=== PATIENT | female | born 1965 | race Caucasian/White ===

== ENCOUNTER → 2020-08-18 11:15 | Outpatient (CLI) | payer SELFPAY ==
[2020-08-18 14:20] LABS: Chloride 103 mmol/L (98-107); Sodium 139 mmol/L (136-145)
[2020-08-18 14:21] LABS: Potassium 4.2 mmoL/L (3.5-5.1)
[2020-08-18 14:23] LABS: Alanine Aminotransferase 10 U/L (12-78); Albumin Level 3.7 g/dl (3.5-5.0); Albumin/Globulin Ratio 1.1 (1.1-1.8); Alkaline Phosphatase 140 U/L (38-126); Anion Gap 9.2 mEq/L (5-15); Aspartate Amino Transferase 22 U/L (14-36); Bilirubin,Total 0.4 mg/dl (0.2-1.3); Carbon Dioxide 31 mmol/L (22.0-30.0); Estimated Glomerular Filt Rate 103 ml/min (>60); GFR (African American) 125 ML/MIN (>60); Globulin 3.3 g/dL (1.3-3.2)
[2020-08-18 14:24] LABS: Calcium 9.4 mg/dl (8.4-10.2); Glucose 99 mg/dl (74-100)
[2020-08-18 14:44] LABS: Blood Urea Nitrogen < 2 mg/dl (7-17)
== END ==
PROVIDERS: Visit Provider Nurse Practitioner Family
DX: M05.79 Rheumatoid arthritis with rheumatoid factor of multiple sites without organ or systems involvement (principal)
CPT/HCPCS: 36415; 80053

== ENCOUNTER 2021-06-21 14:53 | Emergency (ER) | payer MEDICARE, SELFPAY ==
[2021-06-21] VITALS (8 sets, daily range): BP systolic 162–190; BP diastolic 79–98; PULSE 88–118; RESP 14–21; TEMP 36.6–36.7; O2SAT 97–99; BMI 21.2
--- NOTE | 2021-06-21 14:54 | CT_ITS ---
PROCEDURE: CT HEAD/BRAIN WO CON CLINICAL INDICATION: Left side weakness COMPARISON: No exams were available for comparison TECHNIQUE: Axial images obtained. All CT scans at the facility use one or more dose reduction, viz: automated exposure control, ma/kV adjustment per patient size (including targeted exams where dose is matched to indication, i.e. head), or iterative reconstruction technique. FINDINGS: No midline shift, mass effect, intracranial hemorrhage, hydrocephalus, or extra-axial fluid collection is evident. A 6 mm hypodensity is present within the right thalamus consistent with a lacunar infarction age indeterminate. Low-density changes are present within the body of the corpus callosum on the right at 8 mm also consistent with a lacunar infarction age indeterminate. Hypodense changes are present in the left centrum semiovale anteriorly consistent with an old lacunar infarction small area of decreased attenuation is also present in the anterior limb of the right internal capsule and could be due to a small lacunar infarction age indeterminate the calvarium has an unremarkable appearance. No mastoid effusion. No sinus air-fluid level. IMPRESSION: Age indeterminate lacunar infarctions of the right body of the corpus callosum, right internal capsule anterior limb and the right thalamus with old lacunar infarction of the left centrum semiovale. No acute intracranial hemorrhage Dictated by: Cliff Goetz MD 06/21/2021 15:18 Cliff Goetz MD in [facility] 06/21/2021 15:18
--- NOTE | 2021-06-21 15:00 | PC.NURSE ---
PT to CT
[2021-06-21 15:03] LABS: Basophils # 0.1 K/mm3 (0-0.2); Basophils % 0.7 % (0.1-2.0); Eosinophils # 0.2 K/mm3 (0.0-0.4); Eosinophils % 2.2 % (0.1-12.0); Hematocrit 41.9 % (37.0-47.0); Hemoglobin 14.3 g/dL (12.2-16.2); Lymphocytes # 2.6 K/mm3 (0.7-4.5); Lymphocytes % 37.1 % (10-50); Mean Corpuscular HGB Conc 34.2 g/dL (31.8-35.4); Mean Corpuscular Hemoglobin 31.6 pg (27.0-31.2); Mean Corpuscular Volume 92.4 fl (81-99); Mean Platelet Volume 8.3 fl (7.4-10.4); Monocytes # 0.3 K/mm3 (0.1-1.0); Monocytes % 4.9 % (1.7-9.3); Neutrophils # 3.8 K/mm3 (1.8-7.8); Platelet Count 245 K/mm3 (142-424); Red Blood Count 4.53 M/mm3 (4.20-5.40); Red Cell Distribution Width 14.2 % (11.5-17.5); White Blood Count 6.9 K/mm3 (4.8-10.8)
--- NOTE | 2021-06-21 15:05 | PC.NURSE ---
NIH Stroke Scale Score of 2
[2021-06-21 15:09] LABS: Chloride 102 mmol/L (98-107); Sodium 139 mmol/L (136-145)
--- NOTE | 2021-06-21 15:10 | PC.NURSE ---
BACK FROM CT
[2021-06-21 15:11] LABS: Alanine Aminotransferase 14 U/L (12-78); Alkaline Phosphatase 103 U/L (38-126); Aspartate Amino Transferase 21 U/L (14-36); Bilirubin,Total 0.4 mg/dl (0.2-1.3); Blood Urea Nitrogen 3 mg/dl (7-17); Carbon Dioxide 27 mmol/L (22.0-30.0); Creatinine Clearance Estimated 97 mL/min (50-200); Estimated Glomerular Filt Rate 127 ml/min (>60); GFR (African American) 154 ML/MIN (>60)
[2021-06-21 15:12] LABS: Albumin Level 4.1 g/dl (3.5-5.0); Albumin/Globulin Ratio 1.2 (1.1-1.8); Globulin 3.3 g/dL (1.3-3.2); Glucose 119 mg/dl (74-100); Total Protein,Serum 7.4 g/dl (6.3-8.2)
--- NOTE | 2021-06-21 15:21 | HMH.EDGENADL ---
ED Disposition Clinical Impression: Cerebrovascular accident Qualifiers: CVA mechanism: unspecified Qualified Code(s): I63.9 - Cerebral infarction, unspecified Disposition: Xfer Critical Access Hosp Condition on Discharge: Good Referrals: Provider,Referral, [Referring] - Forms: Transfer Record - ED - Critical Care Critical Care Time: No Attestation: On 06/21/21, the high probability of a clinically significant, sudden or life threatening deterioration of the following system(s) required my full and direct attention, intervention and personal management. The time I documented below is in addition to time spent performing reported procedures but includes the following listed in this critical care notation. Medical Decision Making - Mandeep Inquiry Pt receiving controlled substance: No Mandeep was queried for this patient: No Vital Signs: 06/21/21 14:53 06/21/21 15:11 06/21/21 15:30 Temperature 98.0 F Temperature Source Oral Pulse Rate 102 H 98 H Pulse Rate [Right Radial] 118 H Respiratory Rate 15 21 Blood Pressure 186/86 H 177/97 H Blood Pressure [Right Arm] 190/98 H Blood Pressure Mean [Right Arm] 128 Blood Pressure Source [Right Arm] Automatic Cuff Blood Pressure Position [Right Arm] Sitting 02 Sat by Pulse Oximetry 98 98 Oxygen Delivery Method Room Air 06/21/21 15:45 06/21/21 16:00 06/21/21 16:15 Temperature Temperature Source Pulse Rate 88 91 H Pulse Rate [Right Radial] Respiratory Rate 16 14 17 Blood Pressure 164/83 H 163/82 H 162/79 H Blood Pressure [Right Arm] Blood Pressure Mean [Right Arm] Blood Pressure Source [Right Arm] Blood Pressure Position [Right Arm] 02 Sat by Pulse Oximetry 97 97 Oxygen Delivery Method - Lab Data Lab Results 06/21/21 14:50: WBC 6.9, RBC 4.53, Hgb 14.3, Hct 41.9, MCV 92.4, MCH 31.6 H, MCHC 34.2, RDW 14.2, Plt Count 245, MPV 8.3, Neut % (Auto) 55.0, Lymph % (Auto) 37.1, [place] % (Auto) 4.9, Eos % (Auto) 2.2, Baso % (Auto) 0.7, Neut # (Auto) 3.8, Lymph # (Auto) 2.6, [place] # (Auto) 0.3, Eos # (Auto) 0.2, Baso # (Auto) 0.1 06/21/21 14:50: Sodium 139, Potassium 4.0, Chloride 102, Carbon Dioxide 27, Anion Gap 14.0, BUN 3 L, Creatinine 0.50 L, Estimated Creat Clear 97, Estimated GFR 127, Est GFR ( Amer) 154, Glucose 119 H, Calcium 9.0, Total Bilirubin 0.4, AST 21, ALT 14, Alkaline Phosphatase 103, Total Protein 7.4, Albumin 4.1, Globulin 3.3 H, Albumin/Globulin Ratio 1.2 Result diagrams: 06/21/21 14:50 06/21/21 14:50 Orders (Tests/Meds): ORDERS Category Date Time Status Rapid PCR Covid and Flu A/B Stat Lab 06/21/21 16:27 Ordered UA [Urinalysis and Microscopic] Stat Lab 06/21/21 14:54 Ordered General Adult HPI - General Chief complaint: Neuro Symptoms/Deficit Stated complaint: Possible CVA Time Seen by Provider: 06/21/21 14:55 Mode of Arrival: Wheelchair Limitations: No Limitations Description of Symptoms (Recalled from ER Triage Doc. by RN): C/O left side weakness since waking up morning. Drift present in left upper and lower extremity. - History of Present Illness HPI narrative: Patient is a 55-year-old female presenting to the emergency department chief complaint of left-sided weakness. She states that she first noticed it on morning when she woke up. She noticed some mild weakness, denies any dysarthria, has not noticed any facial droop, denies headache, changes in vision states that she had no pain or no additional problems. Emergency department today because her family was concerned about her and about her left-sided weakness she attempted to call her physician, discussed the problems and they told her to come to the emergency department immediately. Denies any past medical history of stroke, but does state that this past week or 2 her blood pressure has been elevated, and when she went to her doctor's office at 1 point it was 190 something over 100 something. After that she
--- NOTE | 2021-06-21 16:15 | PC.NURSE ---
calling [facility] at this time.
--- NOTE | 2021-06-21 16:50 | PC.NURSE ---
Attempted to call report to [facility] and they stated that they were trying to decide where pt will go and that they will call me back.
[2021-06-21 17:45] LABS: Coronavirus 19, PCR Not Detected (NotDetected); Influenza A, PCR Not Detected (NotDetected); Influenza B, PCR Not Detected (NotDetected)
--- NOTE | 2021-06-21 18:00 | PC.NURSE ---
returned call and gave a bed assignment rather than pt going to ED. Bed assignment of Jonathon Bennett, 6th floor, Rm 217 given with phone number of [phone] to call report. Attempted to call report and was told that the nurse taking the pt was busy and would return my call.
== END 2021-06-21 20:42 | disposition short-term general hospital (02) ==
PROVIDERS: Emergency Provider Emergency Medicine; PCP Emergency Medicine
DX: I63.89 Other cerebral infarction (principal); G81.94 Hemiplegia, unspecified affecting left nondominant side; M79.7 Fibromyalgia; F17.210 Nicotine dependence, cigarettes, uncomplicated; Z20.822 Contact with and (suspected) exposure to COVID-19; R29.702 NIHSS score 2
CPT/HCPCS: 70450; 80053; 85025; 99284; C9803; U0003; U0005

== ENCOUNTER → 2021-08-03 07:44 | Outpatient (CLI) | payer MEDICARE, SELFPAY ==
--- NOTE | 2021-08-03 07:47 | US_ITS ---
PROCEDURE: US ABDOMEN COMPLETE CLINICAL INDICATION: ABN RESULTS OF LIVER FUNCTION STUDIES COMPARISON: US RUQ US RUQ-(ABD LTD)1ORGAN/QUAD/FU from 11/07/2016 FINDINGS: PANCREAS: Unremarkable. No obvious mass or abnormal fluid collection. No ductal dilatation LIVER: No focal liver lesions demonstrated. Homogeneous echogenicity. No intrahepatic biliary ductal dilatation evident. There is appropriate direction of blood flow within a non dilated portal vein RIGHT KIDNEY: Unremarkable. Normal size and echogenicity. No hydronephrosis LEFT KIDNEY: Unremarkable. Normal size and echogenicity. No hydronephrosis GALLBLADDER: 2 cm gallstone noted. No gallbladder wall thickening, pericholecystic fluid, or biliary dilatation. Common bile duct is normal at 3 mm. AORTA: Atheromatous changes of the aorta without aneurysm. SPLEEN: Spleen is poorly demonstrated. No obvious splenomegaly. ASCITES: None demonstrated. IMPRESSION: Cholelithiasis otherwise negative. Dictated by: Cliff Goetz MD 08/03/2021 11:25 Cliff Goetz MD in [facility] 08/03/2021 11:25
== END ==
PROVIDERS: PCP Emergency Medicine; Visit Provider Nurse Practitioner Family
DX: R94.5 Abnormal results of liver function studies (principal)
CPT/HCPCS: 76700

== ENCOUNTER 2022-12-12 11:17 | Emergency (ER) | payer MEDICARE, SELFPAY ==
[2022-12-12 11:23] VITALS: PULSE 93; RESP 18; O2SAT 99; BMI 19.7
--- NOTE | 2022-12-12 11:27 | XR_ITS ---
FINAL REPORT CLINICAL HISTORY: INJURY TO THUMB FINDINGS: 3 views of the right hand were obtained. There is a nondisplaced fracture of the proximal aspect of the 1st distal phalanx. There are mild degenerative changes. There is no soft tissue abnormality. IMPRESSION: Nondisplaced fracture of the 1st distal phalanx. Reviewed, Interpreted and Dictated by David Delgado III, MD Transcribed by Nguyễn Resendez Authenticated and [facility]
[2022-12-12 12:20] VITALS: PULSE 86; RESP 19; TEMP 36.6; O2SAT 98; BMI 19.7
--- NOTE | 2022-12-12 12:42 | EXP.UTC ---
Discharge Plan Disposition Patient Disposition: Home, Self-Care Condition: Good Prescriptions Prescriptions: No Action sucralfate 1 gram tablet 1 g PO DAILY prednisone 20 mg tablet 20 mg PO BID 5 Days Qty: 10 0RF naproxen 500 mg tablet 500 mg PO BID 14 Days Qty: 28 0RF methotrexate sodium 2.5 mg tablet 20 mg PO QWEEK folic acid 1 mg tablet 1 mg PO QDAY gabapentin 800 mg tablet 800 mg PO QID hydroxychloroquine 200 mg tablet 200 mg PO BID duloxetine 60 mg capsule,delayed release(DR/EC) 60 mg PO QDAY diclofenac sodium 1 % gel 2 g TOPICAL .PRN adalimumab [Humira Pen] 40 mg/0.8 mL pen injector kit 40 mg SUB-Q Q14D celecoxib 200 mg capsule See Rx Instructions .ROUTE .COMPLEX Qty: 90 0RF Dose Instruction: TAKE ONE CAPSULE BY MOUTH ONCE A DAY Rx Instructions: TAKE ONE CAPSULE BY MOUTH ONCE A DAY Referrals Follow up/Referrals: Harpreet Santacruz DO [Staff Physician] - See instructions (call office for appointment) Em Renteria [Primary Care Provider] - See instructions Activity Restrictions/Add. Instructions Additional Instructions/Restrictions: *finger splint is for support and help control swelling, use it except in the shower. Be sure that is not to tight but not to loose either *Elevate when resting? *Ibuprofen 600-800mg every 6-8 hours as needed for pain an inflammation. If need something more can take Tylenol in between doses of Ibuprofen to help Follow up with your Family Doctor and Orthopedics Immediately follow up with your family doctor for new or worsening of symptoms, or no noticeable improvement over the next 3-5 days Clinical Impressions Clinical Impression: Finger fracture Qualifiers: Encounter type: initial encounter Finger: thumb Fracture type: closed Phalanx: distal Fracture alignment: nondisplaced Laterality: right Qualified Code(s): S62.524A - Nondisplaced fracture of distal phalanx of right thumb, initial encounter for closed fracture Instructions Patient Instructions: Finger Fracture, DI for Finger Fracture, How To Perform RICE (Rest, Ice, Compress, Elevate) Discharge ED Provider: [facility] HPI General Stated complaint: Fall@home 12/11 RT thumb pain Mode of Arrival: Ambulatory Source of Information: Patient Limitations: No Limitations Time Seen by Provider: 12/12/22 12:42 Description of Symptoms (Recalled from Triage Doc. by RN): PATIENT STATES SHE FELL INTO SOME BUSHES YESTERDAY AND INJURED RIGHT THUMB HEENT Symptoms (Recalled from RN notes): No Resp Symptoms (Recalled from RN notes): No Skin Symptoms (Recalled from RN notes): No MS Symptoms (Recalled from RN notes): Yes Functional Status (Recalled from RN notes): WNL History of Present Illness Provider Complaint: Patient states that yesterday she was trying to cut a [place]kin at home that was on [place] when she slipped and fell and hurt her right thumb States that she has been having swelling and bruising in thumb ever since Related Data Home Medications Medication Instructions Recorded Confirmed adalimumab 40 mg/0.8 mL 40 mg SQ Q14D 10/04/17 01/15/19 subcutaneous pen kit (Humira Pen) diclofenac sodium 1 % topical gel 2 g topical .PRN 10/04/17 01/15/19 duloxetine 60 mg capsule,delayed 60 mg PO QDAY 10/04/17 01/15/19 release folic acid 1 mg tablet 1 mg PO QDAY 10/04/17 01/15/19 gabapentin 800 mg tablet 800 mg PO QID 10/04/17 01/15/19 hydroxychloroquine 200 mg tablet 200 mg PO BID 10/04/17 01/15/19 methotrexate sodium 2.5 mg tablet 20 mg PO QWEEK 10/04/17 01/15/19 sucralfate 1 gram tablet 1 g PO DAILY 05/18/18 01/15/19 Previous Rx's Medication Instructions Recorded naproxen 500 mg tablet 500 mg PO BID 14 days #28 tabs 01/15/19 prednisone 20 mg tablet 20 mg PO BID 5 days #10 tabs 01/15/19 celecoxib 200 mg capsule See Rx Instructions .Route 09/24/19 .COMPLEX #90 caps Allergies Allergy/AdvReac Type Severity Reaction Status Date / T
[2022-12-12 13:40] VITALS: BP 0/0; PULSE 86; RESP 19; TEMP 36.6; O2SAT 98
== END 2022-12-12 13:44 | disposition home or self-care (01) ==
PROVIDERS: Emergency Provider Nurse Practitioner; PCP Nurse Practitioner Family
DX: S62.524A Nondisplaced fracture of distal phalanx of right thumb, initial encounter for closed fracture (principal); W18.30XA Fall on same level, unspecified, initial encounter
CPT/HCPCS: 73130; 99212; 99214; G0463

== ENCOUNTER 2023-11-22 13:03 | Outpatient (CLI) | payer MEDICARE, SELFPAY ==
--- NOTE | 2023-11-22 13:29 | XR_ITS ---
FINAL REPORT CLINICAL HISTORY: rheumatoid arthritis of multiple sites COMPARISON: None FINDINGS: Two views of the left wrist were obtained. There is no acute fracture or dislocation. There is mild degenerative change. There is no evidence of erosion. Normal mineralization of the bones. Soft tissue swelling is noted medially. IMPRESSION: Degenerative change and soft tissue swelling without acute abnormality identified. Reviewed, Interpreted and Dictated by David Delgado III, MD Transcribed by Darcy Rutledge Authenticated and . [facility]
--- NOTE | 2023-11-22 13:31 | XR_ITS ---
FINAL REPORT CLINICAL HISTORY: RHEUMATOID ARTHRITIS OF MULTIPLE SITES COMPARISON: None FINDINGS: Right hand: There is no acute fracture. There is no dislocation. There is mild degenerative change. There is normal bone mineralization. There are no bony erosions. IMPRESSION: Mild degenerative change without acute bony abnormality. Reviewed, Interpreted and Dictated by David Delgado III, MD Transcribed by Darcy Rutledge Authenticated and [facility]
--- NOTE | 2023-11-22 13:31 | XR_ITS ---
FINAL REPORT CLINICAL HISTORY: RHEUMATOID ARTHRITIS OF MULTIPLE SITES COMPARISON: None FINDINGS: Two views of the left hand were obtained. There is no acute fracture or dislocation. There is mild degenerative change. There is no evidence of erosion. Normal mineralization of the bones. There is no acute soft tissue abnormality. IMPRESSION: Mild degenerative change without acute abnormality identified. Reviewed, Interpreted and Dictated by David Delgado III, MD Transcribed by Darcy Rutledge Authenticated and [facility]
--- NOTE | 2023-11-22 13:32 | XR_ITS ---
FINAL REPORT CLINICAL HISTORY: RHEUMATOID ARTHRITIS OF MULTIPLE SITES COMPARISON: None FINDINGS: Two views of the right wrist were obtained. There is deformity of the scaphoid which may represent subacute to chronic fracture. No definite acute fracture identified. There are mild and moderate degenerative changes, worst at the radial aspect of the wrist. There is no evidence of erosion. Normal mineralization of the bones. There is no acute soft tissue abnormality. IMPRESSION: Deformity of the scaphoid may represent subacute to chronic fracture. Degenerative changes. Reviewed, Interpreted and Dictated by David Delgado III, MD Transcribed by Darcy Rutledge Authenticated and [facility]
--- NOTE | 2023-11-22 13:32 | XR_ITS ---
FINAL REPORT CLINICAL HISTORY: RHEUMATOID ARTHRITIS OF MULTIPLE SITES COMPARISON: None FINDINGS: 3 views of the right foot were obtained. There is no acute fracture or dislocation. There is mild degenerative change. A small plantar calcaneal spur is noted. There is no evidence of erosion. Normal mineralization of the bones. There is no acute soft tissue abnormality. IMPRESSION: Mild degenerative change without acute abnormality identified. Small plantar calcaneal spur. Reviewed, Interpreted and Dictated by David Delgado III, MD Transcribed by Darcy Rutledge Authenticated and [facility]
--- NOTE | 2023-11-22 13:33 | XR_ITS ---
FINAL REPORT CLINICAL HISTORY: RHEUMATOID ARTHRITIS OF MULTIPLE SITES COMPARISON: None FINDINGS: 3 views of the left foot were obtained. There is no acute fracture or dislocation. There is mild degenerative change. There is no evidence of erosion. Normal mineralization of the bones. There is no acute soft tissue abnormality. IMPRESSION: Mild degenerative change without acute abnormality identified. Reviewed, Interpreted and Dictated by David Delgado III, MD Transcribed by Darcy Rutledge Authenticated and [facility]
--- NOTE | 2023-11-22 13:34 | XR_ITS ---
FINAL REPORT CLINICAL HISTORY: RHEUMATOID ARTHRITIS OF MULTIPLE SITES COMPARISON: None FINDINGS: LEFT ELBOW 3 views were obtained. There is no acute fracture or dislocation. There is no evidence of erosion. There is normal mineralization of the bones. There is no joint effusion. There is mild degenerative change. Posterior soft tissue swelling may represent olecranon bursitis. IMPRESSION: No acute bony abnormality. Posterior soft tissue swelling may represent olecranon bursitis. Reviewed, Interpreted and Dictated by David Delgado III, MD Transcribed by Darcy Rutledge Authenticated and [facility]
[2023-11-22 13:49] LABS: Basophils # 0.1 K/mm3 (0-0.2); Eosinophils # 0.2 K/mm3 (0.0-0.4); Eosinophils % 2.7 % (0.1-12.0); Hematocrit 42.9 % (37.0-47.0); Hemoglobin 14.2 g/dL (12.2-16.2); Lymphocytes # 2.4 K/mm3 (0.7-4.5); Lymphocytes % 39.2 % (10-50); Mean Corpuscular HGB Conc 33.2 g/dL (31.8-35.4); Mean Corpuscular Hemoglobin 31.7 pg (27.0-31.2); Mean Corpuscular Volume 95.5 fl (81-99); Mean Platelet Volume 8.7 fl (7.4-10.4); Monocytes # 0.4 K/mm3 (0.1-1.0); Monocytes % 6.2 % (1.7-9.3); Neutrophils # 3.1 K/mm3 (1.8-7.8); Neutrophils % 50.8 % (37.0-80.0); Platelet Count 244 K/mm3 (142-424); Red Blood Count 4.49 M/mm3 (4.20-5.40); Red Cell Distribution Width 13.2 % (11.5-17.5); White Blood Count 6.2 K/mm3 (4.8-10.8)
[2023-11-22 14:16] LABS: Alanine Aminotransferase 24 U/L (12-78); Alkaline Phosphatase 102 U/L (38-126); Aspartate Amino Transferase 28 U/L (14-36); Bilirubin,Direct 0.1 mg/dl (0.0-0.4); Bilirubin,Indirect 0.2 mg/dL (0.0-0.9); Bilirubin,Total 0.3 mg/dl (0.2-1.3); Bilirubin,Unconjugated 0.2 mg/dL (0.0-1.1); Estimated Glomerular Filt Rate 102 ml/min (>60); GFR (African American) 123 ML/MIN (>60)
[2023-11-22 14:17] LABS: Albumin Level 3.9 g/dl (3.5-5.0); Total Protein,Serum 6.4 g/dl (6.3-8.2)
== END 2023-11-22 23:59 ==
PROVIDERS: PCP Nurse Practitioner Family; Visit Provider Nurse Practitioner
DX: M05.79 Rheumatoid arthritis with rheumatoid factor of multiple sites without organ or systems involvement (principal); Z79.899 Other long term (current) drug therapy
CPT/HCPCS: 36415; 73080; 73100; 73120; 73630; 80076; 82565; 85025

== ENCOUNTER 2024-01-10 10:33 | Outpatient (CLI) | payer MEDICARE, SELFPAY ==
[2024-01-10 19:35] LABS: Anion Gap 13.1 mEq/L (5-15); Blood Urea Nitrogen 5 mg/dl (7-17); Calcium 9.3 mg/dl (8.4-10.2); Carbon Dioxide 30 mmol/L (22.0-30.0); Chloride 101 mmol/L (98-107); Estimated Glomerular Filt Rate 102 ml/min (>60); GFR (African American) 123 ML/MIN (>60); Glucose 83 mg/dl (74-100); Potassium 4.1 mmoL/L (3.5-5.1); Sodium 140 mmol/L (136-145)
== END 2024-01-10 23:59 | disposition home or self-care (01) ==
PROVIDERS: PCP Nurse Practitioner Family; Visit Provider Nurse Practitioner Family
DX: R53.83 Other fatigue (principal)
CPT/HCPCS: 80048

== ENCOUNTER 2024-04-09 16:15 | Outpatient (CLI) | payer MEDICARE, SELFPAY ==
[2024-04-09 16:39] LABS: Basophils % 0.5 % (0.1-2.0); Eosinophils # 0.2 K/mm3 (0.0-0.4); Hematocrit 38.9 % (37.0-47.0); Hemoglobin 13.1 g/dL (12.2-16.2); Lymphocytes # 2.2 K/mm3 (0.7-4.5); Lymphocytes % 35.8 % (10-50); Mean Corpuscular HGB Conc 33.6 g/dL (31.8-35.4); Mean Corpuscular Hemoglobin 31.8 pg (27.0-31.2); Mean Corpuscular Volume 94.6 fl (81-99); Mean Platelet Volume 9.2 fl (7.4-10.4); Monocytes # 0.3 K/mm3 (0.1-1.0); Monocytes % 5.2 % (1.7-9.3); Neutrophils # 3.4 K/mm3 (1.8-7.8); Neutrophils % 55.5 % (37.0-80.0); Platelet Count 193 K/mm3 (142-424); Red Blood Count 4.11 M/mm3 (4.20-5.40); Red Cell Distribution Width 13.4 % (11.5-17.5); White Blood Count 6.1 K/mm3 (4.8-10.8)
[2024-04-09 17:34] LABS: Alanine Aminotransferase 22 U/L (12-78); Albumin Level 3.5 g/dl (3.5-5.0); Albumin/Globulin Ratio 1.3 (1.1-1.8); Alkaline Phosphatase 95 U/L (38-126); Anion Gap 7.4 mEq/L (5-15); Aspartate Amino Transferase 28 U/L (14-36); Bilirubin,Indirect 0.4 mg/dL (0.0-0.9); Bilirubin,Total 0.4 mg/dl (0.2-1.3); Bilirubin,Unconjugated 0.5 mg/dL (0.0-1.1); Blood Urea Nitrogen 6 mg/dl (7-17); Calcium 9.1 mg/dl (8.4-10.2); Carbon Dioxide 28 mmol/L (22.0-30.0); Chloride 110 mmol/L (98-107); Chol/HDL Ratio 2.4 (1-3.5); Cholesterol 122 mg/dl (140-200); Estimated Glomerular Filt Rate 126 ml/min (>60); GFR (African American) 152 ML/MIN (>60); Globulin 2.7 g/dL (1.3-3.2); Glucose 96 mg/dl (74-100); HDL Cholesterol 51 mg/dl (40-60); Potassium 3.4 mmoL/L (3.5-5.1); Sodium 142 mmol/L (136-145); Total Protein,Serum 6.2 g/dl (6.3-8.2); Triglycerides 87 mg/dl (30-150); VLDL Cholesterol 17 mg/dL (0-40)
[2024-04-09 17:59] LABS: C-Reactive Protein 0.5 mg/L (0-4); Direct LDL Cholesterol 51.55 mg/dL (100-129)
[2024-04-09 18:06] LABS: Thyroid Stimulating Hormone 0.47 uIU/mL (0.465-4.68)
[2024-04-09 18:12] LABS: 25-OH Vitamin D, Total 41.4 ng/mL (30-100)
[2024-04-09 20:12] LABS: Erythrocyte Sedimentation Rate 15 mm/hr (0-30)
== END 2024-04-09 23:59 | disposition home or self-care (01) ==
LOC: LAB 16:16
PROVIDERS: PCP Nurse Practitioner Family; Visit Provider Nurse Practitioner Family
DX: M05.741 Rheumatoid arthritis with rheumatoid factor of right hand without organ or systems involvement (principal); E55.9 Vitamin D deficiency, unspecified; M06.9 Rheumatoid arthritis, unspecified; R53.83 Other fatigue; I10 Essential (primary) hypertension
CPT/HCPCS: 36415; 80050; 80053; 80061; 80076; 82306; 82565; 84443; 85025; 85651; 86140

== ENCOUNTER 2024-07-09 15:32 | Outpatient (CLI) | payer MEDICARE, SELFPAY ==
[2024-07-09 18:39] LABS: Alanine Aminotransferase 19 U/L (12-78); Albumin Level 3.7 g/dl (3.5-5.0); Albumin/Globulin Ratio 1.5 (1.1-1.8); Alkaline Phosphatase 79 U/L (38-126); Anion Gap 8.9 mEq/L (5-15); Aspartate Amino Transferase 24 U/L (14-36); Bilirubin,Total 0.5 mg/dl (0.2-1.3); Blood Urea Nitrogen 10 mg/dl (7-17); Calcium 8.9 mg/dl (8.4-10.2); Carbon Dioxide 28 mmol/L (22.0-30.0); Chloride 106 mmol/L (98-107); Estimated Glomerular Filt Rate 102 ml/min (>60); GFR (African American) 123 ML/MIN (>60); Globulin 2.4 g/dL (1.3-3.2); Glucose 77 mg/dl (74-100); Potassium 3.9 mmoL/L (3.5-5.1); Sodium 139 mmol/L (136-145); Total Protein,Serum 6.1 g/dl (6.3-8.2)
== END 2024-07-09 23:59 | disposition home or self-care (01) ==
LOC: LAB.DROPOF 07-10 09:56
PROVIDERS: PCP Nurse Practitioner Family; Visit Provider Nurse Practitioner Family
DX: M05.741 Rheumatoid arthritis with rheumatoid factor of right hand without organ or systems involvement (principal); I10 Essential (primary) hypertension; I63.9 Cerebral infarction, unspecified
CPT/HCPCS: 80053

== ENCOUNTER 2024-10-11 15:42 | Outpatient (CLI) | payer MEDICARE, SELFPAY ==
[2024-10-11 18:08] LABS: Influenza A, PCR Not Detected (NotDetected); Influenza B, PCR Not Detected (NotDetected)
[2024-10-11 22:27] LABS: Coronavirus 19, PCR Detected (NotDetected)
== END 2024-10-11 23:59 | disposition home or self-care (01) ==
LOC: LAB.DROPOF 10-12 10:50
PROVIDERS: PCP Family Medicine; Visit Provider Family Medicine
DX: R69 Illness, unspecified (principal); U07.1 COVID-19
CPT/HCPCS: 87636

== ENCOUNTER 2024-12-24 15:01 | Outpatient (CLI) | payer MEDICARE, SELFPAY ==
[2024-12-24 15:20] LABS: Basophils % 0.3 % (0.1-2.0); Eosinophils # 0.2 Kmm3 (0.0-0.4); Eosinophils % 2.7 % (0.1-12.0); Hemoglobin 13.5 g/dL (12.2-16.2); Lymphocytes # 2.3 K/mm3 (0.7-4.5); Lymphocytes % 38.7 % (10-50); Mean Corpuscular HGB Conc 34.6 g/dL (31.8-35.4); Mean Corpuscular Hemoglobin 31.4 pg (27.0-31.2); Mean Corpuscular Volume 90.7 fl (81-99); Mean Platelet Volume 10.9 fl (7.4-10.4); Monocytes # 0.5 K/mm3 (0.1-1.0); Neutrophils % 50.1 % (37.0-80.0); Nucleated Red Blood Cells # 0 10^3/uL; Nucleated Red Blood Cells % 0 %; Platelet Count 200 K/mm3 (142-424); Red Cell Distribution Width 12.3 % (11.5-17.5); Red Cell Distribution Width-SD 40.8 fL
[2024-12-24 16:02] LABS: Aspartate Amino Transferase 29 U/L (14-36); Bilirubin,Unconjugated 0.4 mg/dL (0.0-1.1); Estimated Glomerular Filt Rate 102 ml/min (>60); GFR (African American) 123 ML/MIN (>60)
[2024-12-24 16:11] LABS: Albumin Level 3.9 g/dl (3.5-5.0)
[2024-12-24 16:14] LABS: Alanine Aminotransferase 21 U/L (12-78); Alkaline Phosphatase 95 U/L (38-126); Bilirubin,Indirect 0.2 mg/dL (0.0-0.9); Bilirubin,Total 0.2 mg/dl (0.2-1.3); Total Protein,Serum 6.5 g/dl (6.3-8.2)
== END 2024-12-24 23:59 | disposition home or self-care (01) ==
LOC: LAB 15:02
PROVIDERS: PCP Nurse Practitioner Family; Visit Provider Nurse Practitioner
DX: Z79.899 Other long term (current) drug therapy (principal)
CPT/HCPCS: 36415; 80076; 82565; 85025

== ENCOUNTER 2025-01-01 08:58 | Outpatient (CLI) | payer MEDICARE, SELFPAY ==
[2025-01-01 18:43] LABS: Anion Gap 2.1 mEq/L (5-15); Blood Urea Nitrogen 8 mg/dl (7-17); Calcium 9.5 mg/dl (8.4-10.2); Carbon Dioxide 28 mmol/L (22.0-30.0); Chloride 110 mmol/L (98-107); Estimated Glomerular Filt Rate 102 ml/min (>60); GFR (African American) 123 ML/MIN (>60); Glucose 93 mg/dl (74-100); Potassium 4.1 mmoL/L (3.5-5.1); Sodium 136 mmol/L (136-145)
== END 2025-01-01 23:59 | disposition home or self-care (01) ==
LOC: LAB.DROPOF 01-03 08:59
PROVIDERS: PCP Nurse Practitioner Family; Visit Provider Nurse Practitioner Family
DX: B34.9 Viral infection, unspecified (principal)
CPT/HCPCS: 80048

== ENCOUNTER 2025-04-01 14:21 | Outpatient (CLI) | payer MEDICARE, SELFPAY ==
--- OUTSIDE RECORDS SUMMARY | 2025-04-01 14:24 | XMS_ITS | Encounter Summary ---
Author Organization Healthcare Address [address] [place] [address] Care Team Providers Care Dyslexia Teacher Name Role Phone Em Renteria APRN Primary Care Provider + [phone] Artem Armenta MD Unavailable [phone] Rakesh Woodall MD Unavailable Akbar Torres APRN Primary Care Provider [phone] Reason for Visit * Reason Comments Med Refill Encounter Details Date Type Department Care Team (Late st Contact Info) Description 05/23/2022 Refill [place] [facility] [address] [place] [address] Brittani Ortiz APRN [address] [address] Social History Tobacco Use Types Packs/Day Years Used Date Smoking Tobacco: Every Day Cigarettes 0.5 30 Smokeless Tobacco: Never Alcohol Use Standard Drinks/Week Comments No 0 (1 standard drink = 0.6 oz pur e alcohol) PHQ-2 Answer Date Recorded Patient Health Questionnaire-2 Score 0 05/25/2022 Comments Unknown Sex and Gender Information Value Date Recorded Sex Assigned at Not on file Legal Sex Female 8:05 PM EDT Gender Identity Not on file Sexual Orientation Not on file COVID-19 Exposure Response Date Recorded In the last 10 days, have yo u been in contact with someone who was confirmed or suspected to have Coronavirus/COVID-19? No / Unsure 05/25/2022 1:09 PM EDT documented as of this encounter Functional Status * Over the past 2 weeks, how often have you been bothered by any of the following problems? Question Answer Date of Assessment Author Little interest or pleasure in doing things Not at all 05/25/2022 1:17 PM EDT Katy Garcia Feeling down, depressed, or hopeless Not at all 05/25/2022 1:17 PM EDT Katy Garcia Patient Health Questionnaire -2 Score 0 05/25/2022 1:17 PM EDT Katy Garcia documented as of this encounter Plan of Treatment Upcoming Encounters Date Type Department Care Team (Late st Contact Info) Description 07/22/2025 11:20 AM EST Office Visit [facility] [address] [place] [address] Oksana Sosa APRN [address] [place] [address] documented as of this encounter Visit Diagnoses Not on filedocumented in this encounter Additional Health Concerns Assessment Noted Time A fall risk assessment has been complete d for the patient 10/12/2021 3:07 PM EST documented as of this encounter Care Teams Dyslexia Teacher Relationship Specialty Start Date End Date Em Renteria APRN [address] [place] [address] PCP - General 07/09/21 03/31/24 Akbar Torres, RESTA[employer] GENER[employer] MANAGER [address] [place] [id number] PCP - General 04/01/24 Artem Armenta MD [address] [place] [id number] Consulting Physician Neurology 07/09/21 Rakesh Woodall MD [address] [place] [address] Consulting Physician 09/22/21 documented as of this encounter
--- OUTSIDE RECORDS SUMMARY | 2025-04-01 14:24 | XMS_ITS | Encounter Summary ---
Author Organization [facility] Address [address] [id number] Care Team Providers Care Box Office Clerk Name Role Phone Artem Armenta MD Unavailable [phone] Rakesh Woodall MD Unavailable Akbar Torres APRN Primary Care Provider [phone] Reason for Visit * Reason Onset Date Comments Appointment 01/01/2025 Encounter Details Date Type Department Care Team (Late st Contact Info) Description 01/01/2025 Telephone [facility] Medicine Specialties [address] [place] [address] [place] [address] Appointment Social History Tobacco Use Types Packs/Day Years Used Date Smoking Tobacco: Every Day Cigarettes 0.3 43.6 Started: 1983 Smokeless Tobacco: Never Comments:4 cigs a day as of 11/20/23 Alcohol Use Standard Drinks/Week Comments Never 0 (1 standard drink = 0.6 oz pur e alcohol) PHQ-2 Answer Date Recorded Patient Health Questionnaire-2 Score 0 04/01/2024 PHQ-2A Answer Date Recorded Patient Health Questionnaire-2 Score 0 07/20/2023 Comments Unknown Sex and Gender Information Value Date Recorded Sex Assigned at Not on file Legal Sex Female 8:05 PM EDT Gender Identity Not on file Sexual Orientation Not on file documented as of this encounter Miscellaneous Notes * Telephone Encounter - Jasmin Calvo - 03/17/2025 2:26 PM EDT Patient returned call I advised of needing labs She asked that we send lab orders to [facility] [place] Lab orders faxed * Telephone Encounter - David Mesa RN - 03/17/2025 2:10 PM EDT Called patient to discuss the need for labs. No answer -- [facility] x1. * Telephone Encounter - Ivett Madrigal - 03/17/2025 10:42 AM EDT Received call from patient Patient was calling clinic back Rescheduled patient's follow up appt for July and placed on wait list Patient states that she is needing refills on all her medications CB: [phone] * Telephone Encounter - Marissa Stevenson - 01/02/2025 10:54 AM EDT Called PT to move appt up. Schld for 03/17/2025 * Telephone Encounter - Jasmin Calvo - 01/01/2025 4:56 PM EDT Patient called returning a call to our office CB: [phone] documented in this encounter Plan of Treatment Upcoming Encounters Date Type Department Care Team (Late st Contact Info) Description 07/22/2025 11:20 AM EST [facility] [address] [place] [address] Oksana Sosa, WOOD FINISHER APPRENTICE [address] [place] [address] documented as of this encounter Visit Diagnoses Not on filedocumented in this encounter Additional Health Concerns Assessment Noted Time A fall risk assessment has been complete d for the patient 04/01/2024 3:24 PM EDT A Body Mass Index follow-up plan has been documented for the patient 04/01/2024 4:07 PM EDT documented as of this encounter Care Teams Box Office Clerk Relationship Specialty Start Date End Date Akbar Torres APRN [address] [place] [address] PCP - General 04/01/24 Artem Armenta MD [address] [place] [address] Consulting Physician Neurology 07/09/21 Rakesh Woodall MD [address] [place] [address] Consulting Physician 09/22/21 documented as of this encounter
--- OUTSIDE RECORDS SUMMARY | 2025-04-01 14:24 | XMS_ITS | Encounter Summary ---
Author Organization Healthcare Address [address] [place] [address] Care Team Providers Care Public Aid Eligibility Assistant Name Role Phone Artem Armenta MD Unavailable [phone] Rakesh Woodall MD Unavailable Akbar Torres APRN Primary Care Provider [phone] Reason for Visit * Reason Comments Med Refill Encounter Details Date Type Department Care Team (Late st Contact Info) Description 02/02/2025 Refill [place] [facility] Special[facility] [address] [place] [address] Oksana Sosa, HEAD SUGAR REPROCESS OPERATOR [address] [place] [address] Seropositive rheumatoid arthritis of multiple sites (CMS/[facility]) Social History Tobacco Use Types Packs/Day Years [...] as of this encounter Miscellaneous Notes * Progress Notes - Padmini Ralph, PharmD - 02/03/2025 8:03 AM EDT Refill request does not meet protocol. Sending to clinic for review. Additional info: Appointment compliance - Patient has not followed up in clinic as requested. Please review for scheduling and if refills are appropriate. documented in this encounter Plan of Treatment Upcoming Encounters Date Type Department Care Team (Late st Contact Info) Description 07/22/2025 11:20 AM EST Office Visit [place] [facility] [address] [place] [address] Oksana Sosa APRN [address] [place] [address] documented as of this encounter Visit Diagnoses Diagnosis Seropositive rheumatoid arthritis of multiple sites (CMS/[facility]) documented in this encounter Additional Health Concerns Assessment Noted Time A fall risk assessment has been complete d for the patient 04/01/2024 3:24 PM EDT A Body Mass Index follow-up plan has been documented for the patient 04/01/2024 4:07 PM EDT documented as of this encounter Care Teams Public Aid Eligibility Assistant Relationship Specialty Start Date End Date Akbar Torres APRN [address] [place] [address] PCP - General 04/01/24 Artem Armenta MD [address] [place] [address] Consulting Physician Neurology 07/09/21 Rakesh Woodall MD [address] [place] [address] Consulting Physician 09/22/21 documented as of this encounter
--- OUTSIDE RECORDS SUMMARY | 2025-04-01 14:24 | XMS_ITS | Clinical Summary ---
Author Organization [facility] Address [address] [place] [address] Care Team Providers Care Spectrographic Analyst Name Role Phone Artem Armenta MD Unavailable [phone] Rakesh Woodall MD Unavailable Akbar Torres APRN Primary Care Provider [phone] Allergies Active Allergy Reactions Criticality Noted Date Comments Codeine Unknown - Patient st ates they do not know rxn details,Other - please document in the comment field Low 02/17/2015 Hydrocodone Hives Medium 01/15/2019 Medications aspirin 81 MG EC tablet Take 1 tablet (81 mg) by mouth 1 (one) time each day. Active lisinopril 20 MG tablet 3 Active atorvastatin (Lipitor) 40 MG tablet Take 1 tablet (40 mg) by mouth 1 (one) time each day. Active albuterol 108 (90 Base) MCG/ACT inhaler Inhale 2 puffs every 4 hours by inhalation route as directed. 3 Active diclofenac (Voltaren) 1 % topical gelIndications: Seropositive rheumatoid arthritis of multiple sites (CMS/HCC),High risk medication use Apple to affected areas as needed for joint pain 50 g 3 4 Active methotrexate 2.5 MG tabletIndicatio ns:Seropositive rheumatoid arthritis of multiple sites (CMS/HCC),High risk medication use Take 8 tablets (20 mg total) by mouth 1 (one) time per week. 32 tablet 4 4 Active gabapentin (Neurontin) 800 MG tablet TAKE ONE TABLET BY MOUTH FOUR TIMES A DAY 120 tablet 3 5 Active celecoxib (CeleBREX) 200 MG capsuleIndicati ons:Seropositiv e rheumatoid arthritis of multiple sites (CMS/HCC) TAKE ONE CAPSULE BY MOUTH ONCE A DAY 30 capsule 4 5 Active Active Problems Problem Noted Date Diagnosed Date Cerebrovascular accident (CV A) due to stenosis of small artery 06/22/2021 Essential hypertension 06/22/2021 Mixed hyperlipidemia 06/22/2021 Idiopathic peripheral neuropathy 06/22/2021 Osteoarthritis 06/22/2021 Tobacco use disorder 06/22/2021 High risk medication use 06/08/2021 Osteoarthritis, generalized 11/01/2018 Rheumatoid arthritis, seropositive, multiple sit es 10/30/2018 Neck pain 11/29/2017 Weight loss, unintentional 09/04/2017 GERD without esophagitis 10/24/2016 TMJ arthralgia 02/17/2015 Resolved Problems Problem Noted Date Diagnosed Date Resolved Date Encounter for other specifie d special examinations 06/21/2021 06/22/2021 Encounters Date Type Department Care Team Description 02/02/2025 Refill [facility] Medicine Specialties [address] [place] [address] Oksana Sosa, VANESA Seropositive rheumatoid arthritis of multiple sites (CMS/HCC) 01/01/2025 Telephone [facility] Medicine Specialties [address] [place] [address] Jasmin Calvo Appointment from Last 3 Months Immunizations Immunization Administration Dates Next Due Moderna COVID-19 Vaccine (Re d Cap) 12+ years 05/20/2021,12/24/2020,11/26/2020 Pneumococcal Conjugate PCV 13 01/27/2016 TD (adult), 2 Lf tetanus tox oid, preservative free, adsorbed 06/07/1996 Tdap 01/27/2016 Family History Medical History Relation Name Comments Cervical cancer Other 1 Conversions - Other Other 2 amyotrop hic lateral sclerosis Brain cancer Other 3 Relation Name Status Comments Other 1 Other 2 Other 3 Social History Tobacco Use Types Packs/Day Years Used Date Smoking Tobacco: Every Day Cigarettes 0.3 43.6 Started: 1983 Smokeless Tobacco: Never Tobacco Cessation:Ready to Q uit: Not Asked; Counseling Given: Not Answered Comments:4 cigs a day as of 11/20/23 [...] on file Sexual Orientation Not on file Last Filed Vital Signs Vital Sign Reading Time Taken Comments Blood Pressure 146/73 04/01/2024 3:30 PM EDT Pulse 70 04/01/2024 3:19 PM EDT Temperature 36.9 C (98.4 F) 04/01/2024 3:19 PM EDT Respiratory Rate 16 04/01/2024 3:19 PM EDT Oxygen Saturation 98% 04/01/2024 3:19 PM EDT Inhaled Oxygen Concentration - - Weight 44.8 kg (98 lb 12.3 oz) 04/01/2024 3:19 P M EDT Height 154.9 cm (5' 1 ) 04/01/2024 3:19 PM EDT Body Mass Index 18.66 04/01/2024 3:19 PM EDT Plan of Treatment Upcoming Encounters Date Type Department Care Team (Late st Contact Info) Description 07/22/2025 11:20 AM EST Office Visit [place] [facility] Medicine Specialties [address] [place] [address] Oksana Sosa, CMM OPERATOR [address] [place] [address] Health Maintenance Due Date Last Done Comments [facility]-Medicare Annual Wellness (AWV) 1965 [facility]-Infant/Child/Adol SDOH Screenings 1965 [facility]- SDOH Screenings 1981 [facility]-Adult SDOH Screenings 1981 [facility]-Zoster Vaccines (1 of 2) 1982 [facility]-Pap Smear 02/12/2006 02/12/2003, 03/2002, 02/21/2001, Additional history exists [facility]-Cervical Cancer Screening 02/13/2008 [facility]-HPV/Cotest 02/13/2008 02/12/2003, 060 03/2002, 02/21/2001, Additional history exists CT Colonography 2008 Colonoscopy 2008 FIT-DNA 2008 FIT 2008 FOBT 2008 Sigmoidoscopy 2008 [facility]-Colorectal Cancer Screening 2008 [facility]-Breast Cancer Screening 2013 [facility]-Pneumococcal Vaccine: 50+ Years (2 of 2 - PPSV23) 03/23/2016 01/27/2016 [facility]-RSV Vaccine: 60+ Years or (1 - Risk 60-74 years 1-dose series) 2023 [id number] Vaccine (4 - season) 2024 05/20/2021, 12/24/2020, 11/26/2020 [facility]-Depression Screening 04/01/2025 04/01/2024, 01/2021 [facility]-Influenza Vaccine (#1) 2025 [facility]-DTaP,Tdap,and Td Vaccines (2 - Td or Tdap) 01/26/2026 01/27/2016, 06/07/1996 [facility]-HIV Screening Completed 02/17/2015 [facility]-Hepatitis C Screening Completed 02/17/2015 HPV Vaccines Aged Out No longer eligi ble based on patient's age to complete this topic [facility]-HIB Vaccines Aged Out No longer e ligible based on patient's age to complete this topic [facility]-Hepatitis A Vaccines Aged Out No longer eligible based on patient's age to complete this topic [facility]-IPV Vaccines Aged Out No longer e ligible based on patient's age to complete this topic [facility]-Rotavirus Vaccines Aged Out No lo nger eligible based on patient's age to complete this topic Procedures Procedure Name Priority Date/Time Associated Diagnosis Comments ACUTE HEPATITIS PANEL Routine 02/17/2015 3:13 PM EDT HIV 1/2 ANTIBODY/ANTIGEN SCREEN WITH REFLEX TO HIV I/II DIFFERENTIATION Routine 02/17/2015 3:13 PM EDT CYTO DATA CONVERSION Routine 02/12/2003 12:00 AM EDT from Last 3 Months or Most Recently Relevant to Health Maintenance Results * HIV 1 & 2 Antibody/Antigen Screen (02/17/2015 3:13 PM EDT) HIV 1 Result NONREACTIVE Screening for HIV 1 and 2 antibodies is NONREACTIVE. No confirmatory testing is required. SUNQUEST 02/17/2015 3:13 PM EDT 02/17/2015 3:52 PM EDT us [email or web address] CMM OPERATOR LAB BLOOD ORDERABLES Final Res ult SUNQUEST * Acute Hepatitis Panel (02/17/2015 3:13 PM EDT) Hepatitis B Surf Antigen NEGATIVE Reference Value: Negative SUNQUEST Hepatitis C Antibody NEGATIVE Reference Range: Negative SUNQUEST Hepatitis A Antibody IgM NEGATIVE Reference Value: Negative SUNQUEST External Hepatitis B Core IgM (HBCM) NEGATIVE Reference Value: Negative SUNQUEST 02/17/2015 3:13 PM EDT 02/17/2015 3:52 PM EDT [email or web address] CMM OPERATOR LAB BLOOD ORDERABLES Final Res ult SUNQUEST * Cytology (02/12/2003 12:00 AM EDT) 02/12/2003 02/14/2003 12: 21 PM EDT Narrative SUNQUEST - 02/17/2003 4:16 PM EDT [facility] MR #: [id number] [facility] [address] [place], [place] [address] 1965 (Age: 37) FW Collect Date: 02/12/2003 00:00 Receipt Date: 02/14/2003 12:21 Page 1 DEPARTMENT OF PATHOLOGY AND LABORATORY MEDICINE CYTOPATHOLOGY REPORT Email: [email or web address] [id number] ATTENDING MD/Practitioner: Tania Hogan MD Service: PAT Location: OUTS Reported: 02/17/2003 16:16 Collected: 02/12/2003 00:00 INTERPRETATION THIN PREP (CERVICAL/VAGINAL): NEGATIVE FOR INTRAEPITHELIAL LESION OR MALIGNANCY. SATISFACTORY FOR EVALUATION; ENDOCERVICAL/ TRANSFORMATION ZONE COMPONENT PRESENT. Electronically Signed Out By BUNNY Frederick (ASCP) BUNNY Frederick (ASCP) Cervical cytology is a screening test primarily for squamous cancers and precursors and has associated false negative and positive results. New technologies such as liquid based sampling may decrease but will not eliminate all false negative results. Regular screening and follow-up of unexplained clinical signs and symptoms are recommended to minimize false negative results. Please see the ASCCP website (www.asccp.org) for followup recommendations. If HPV testing was requested, correlation with the results is suggested (please call Microbiology at [phone] for results). CLINICAL INFORMATION: Menstrual History: Cyclic Date of Last Menstrual Period: 02/04 Other Clinical Conditions: Tobacco user SPECIMEN DESCRIPTION: A: THIN PREP (CERVICAL/VAGINAL) THIN PREP PROCESS CELLULAR ENHANCEMENT ICD: V76.2 CERVIX, SPECIAL SCREENING FOR MALIGNANT NEOPLASM F: A; THIN SCRN 94595 SNOMED CODES: A; [id number] In cases where a pathologist has signed out the report, the service has been rendered in part by a resident. The signing pathologist has performed and is responsible for the reported pathologic evaluation. Historical Provider MD LAB PATHOLOGY ORDERABLES Final Result Performing Organization Address City/State/[facility] Co de Phone Number SUNQUEST from Last 3 Months or Most Recently Relevant to Health Maintenance Insurance [facility] MEDICARE Advance Directives * Full Code (Latest Code Status on File) Date Activated Date Inactivated Comments 06/21/2021 11:43 PM 06/22/2021 6:47 PM Question Answer Comments Patient has decision-making capacity? Yes Care Teams Spectrographic Analyst Relationship Specialty Start Date End Date Akbar Torres APRN [address], [place] [id number] PCP - General 04/01/24 Artem Armenta MD [address] [place] [address] Consulting Physician Neurology 07/09/21 Rakesh Woodall MD [address] [place] [address] Consulting Physician 09/22/21
[2025-04-01 14:54] LABS: Hematocrit 38.7 % (37.0-47.0); Hemoglobin 12.8 g/dL (12.2-16.2); Immature Granulocytes % 0.2 %; Mean Corpuscular HGB Conc 33.1 g/dL (31.8-35.4); Mean Corpuscular Hemoglobin 29.9 pg (27.0-31.2); Mean Corpuscular Volume 90.4 fl (81-99); Nucleated Red Blood Cells % 0 %; Platelet Count 190 K/mm3 (142-424); Red Blood Count 4.28 M/mm3 (4.20-5.40); Red Cell Distribution Width-SD 39.5 fL; White Blood Count 5.7 K/mm3 (4.8-10.8)
[2025-04-01 15:42] LABS: Albumin Level 3.2 g/dl (3.5-5.0)
[2025-04-01 15:45] LABS: Alanine Aminotransferase 16 U/L (12-78); Aspartate Amino Transferase 24 U/L (14-36); Bilirubin,Unconjugated 0.3 mg/dL (0.0-1.1); Creatinine,Serum 0.50 mg/dl (0.52-1.04); Estimated Glomerular Filt Rate 125 ml/min (>60); GFR (African American) 152 ML/MIN (>60); Total Protein,Serum 6.4 g/dl (6.3-8.2)
[2025-04-01 15:46] LABS: Alkaline Phosphatase 131 U/L (38-126); Bilirubin,Direct 0.1 mg/dl (0.0-0.4); Bilirubin,Indirect 0.3 mg/dL (0.0-0.9); Bilirubin,Total 0.4 mg/dl (0.2-1.3)
== END 2025-04-01 23:59 | disposition home or self-care (01) ==
LOC: LAB 14:22
PROVIDERS: PCP Nurse Practitioner Family; Visit Provider Nurse Practitioner
DX: Z79.899 Other long term (current) drug therapy (principal)
CPT/HCPCS: 36415; 80076; 82565; 85025

== ENCOUNTER 2025-06-18 14:30 | Outpatient (CLI) | payer MEDICARE, SELFPAY ==
--- OUTSIDE RECORDS SUMMARY | 2018-01-25 11:20 | XMS_ITS | Continuity of Care Document ---
Author Organization [facility] Address [address] [place] [address] Phone Care Team Providers Care Ladies Locker Room Attendant Name Role Phone Unavailable Unavailable Unavailable Allergies, Adverse Reactions, Alerts Substance Reaction Status Criticality Sulfa (Sulfonamide Antibiotics) Active No Information Medications Medication Instructions Dosage Effective Dates (start - stop) Status Comments sertraline 100 mg tablet take 1 tablet b y oral route every day 100 MG - Active lisinopril 10 mg tablet take 1 tablet by oral route every day 10 MG - Active medroxyprogesterone 2.5 mg tablet take 2 tablet by oral route every day 5 MG - Active Premarin 0.625 mg tablet take 1 tablet b y oral route every day for 21 consecutive days, followed by 7 days off 0.625 MG - Active Procedures Procedure Date OFFICE/OUTPATIENT VISIT, EST Advance Directives Directive Yes / No Effective Date File Name No Information Encounters Encounter Description Practice Location Reason(s) For Visit Diagnoses Date Provider OFFICE/OUTPATI ENT VISIT, EST [facility], [address] [place], [address], tel:[phone] [place] floaters and flashes (chief complaint) Vitreous detachment of left eye 2017 No Information [facility], [address] [place], [address], tel:[phone] [place] flashes of light (chief complaint) Vitreous detachment of left eyeCombined forms of age-related cataract, bilateralOther mechanical strabismusMyopia, bilateral 2017 No Information Family History Family Member Type Diagnosis Age At Onset No Information Payers Payer name Insurance type Covered green party ID Authoriza tion(s) [facility] CI [id number] Social History Type Description Quantity Date Captured Comments Alcohol Use Details Unknown Caffeine Use Details Unknown Tobacco Use Status Current non-smoker 16 Smoking Status Never smoker Non-Smoking Tobacco Use Details : No Details Available : No Details Available Sex Female Chief Complaint And Reason For Visit From encounter dated '01/25/2018 15:20'. floaters and flashes (chief complaint). Description: The 52 year old female presents for evaluationof floaters and flashes in the left eye. It affects neither distance or near vision. The symptom isconstant. The condition is stable; not any worse. No eye drops. History Of Present Illness Encounter Date Complaint History Of Prese nt Illness floaters and flashes The 52 year old female presents for evaluation of floaters and flashes in the left eye. It affects neither distance or near vision. The symptom is constant. The condition is stable; not any worse. No eye drops. flashes of light The 52 year old female presents for evaluation of flashes of light in the left eye. Pt states that 2 weeks ago she noticed flashes of light peripherally OS and notice a shadow over vision. pt noticed new floaters in OS. Vision is fine. The condition is stable. S/p 4 strabismus sx on OS (OS was turned in when pt was born). No Cls. Instructions Date Instruction Additional Infor puraion Impression/Plan - wi ll continue to monitor- advised at least annual dilated examsPatient instructed to call [facility] prn symptoms of tear/RD. Related to Vitreous detachment of left eye Return in 3-4 weeks with Milo Ramos MD for Dilated Exam. Related to Vitreous detachment of left eye Impression/Plan - Di scussed diagnosis in detail with patient. Reviewed signs and symptoms of retinal break/detachment. Patient instructed to call [facility] prn these symptoms. 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 Related to Vitreous detachment of left eye Assessments Type Assessment Date assessment Vitreous detachment of left eye impression Vitreous detachment of left eye: H43.812. With recent symptoms of flashes and floaters Posterior Vitreous Detachment, OS without evidence of retinal break or RD
[2025-06-18 21:42] LABS: Hematocrit 41.1 % (37.0-47.0); Hemoglobin 13.2 g/dL (12.2-16.2); Immature Granulocytes % 0.2 %; Mean Corpuscular HGB Conc 32.1 g/dL (31.8-35.4); Mean Corpuscular Hemoglobin 29.1 pg (27.0-31.2); Mean Corpuscular Volume 90.5 fl (81-99); Nucleated Red Blood Cells % 0 %; Platelet Count 232 K/mm3 (142-424); Red Blood Count 4.54 M/mm3 (4.20-5.40); Red Cell Distribution Width-SD 40.6 fL; White Blood Count 5.7 K/mm3 (4.8-10.8)
[2025-06-18 22:19] LABS: Alanine Aminotransferase 21 U/L (12-78); Albumin Level 3.7 g/dl (3.5-5.0); Albumin/Globulin Ratio 1.4 (1.1-1.8); Alkaline Phosphatase 134 U/L (38-126); Anion Gap 11.6 mEq/L (5-15); Aspartate Amino Transferase 29 U/L (14-36); Bilirubin,Total 0.6 mg/dl (0.2-1.3); Blood Urea Nitrogen 6 mg/dl (7-17); Calcium 9.1 mg/dl (8.4-10.2); Carbon Dioxide 28 mmol/L (22.0-30.0); Chloride 103 mmol/L (98-107); Cholesterol 128 mg/dl (140-200); Creatinine,Serum 0.70 mg/dl (0.52-1.04); Estimated Glomerular Filt Rate 85 ml/min (>60); GFR (African American) 103 ML/MIN (>60); Globulin 2.6 g/dL (1.3-3.2); Glucose 101 mg/dl (74-100); HDL Cholesterol 39 mg/dl (40-60); Potassium 4.6 mmoL/L (3.5-5.1); Sodium 138 mmol/L (136-145); Total Protein,Serum 6.3 g/dl (6.3-8.2); Triglycerides 116 mg/dl (30-150)
--- OUTSIDE RECORDS SUMMARY | 2025-06-19 14:03 | XMS_ITS | Clinical Summary ---
Author Organization [facility] [place] [facility] Address [address] [place] [address] Care Team Providers Care Rock Wool Applicator Name Role Phone Artem Armenta MD Unavailable [phone] Rakesh Woodall MD Unavailable Akbar Torres APRN Primary Care Provider [phone] Allergies Active Allergy Reactions Criticality Noted Date [...] per week. 32 tablet 4 4 Active celecoxib (CeleBREX) 200 MG capsuleIndicati ons:Seropositiv e rheumatoid arthritis of multiple sites (CMS/HCC) TAKE ONE CAPSULE BY MOUTH ONCE A DAY 30 capsule 4 5 Active gabapentin (Neurontin) 800 MG tablet TAKE ONE TABLET BY MOUTH FOUR TIMES A DAY 120 tablet 3 5 Active Active Problems Problem Noted Date Diagnosed Date Cerebrovascular accident (CV A) due to stenosis of small artery 06/22/2021 Essential hypertension 06/22/2021 Mixed hyperlipidemia 06/22/2021 Idiopathic peripheral neuropathy 06/22/2021 Tobacco use disorder 06/22/2021 Osteoarthritis, generalized 11/01/2018 Rheumatoid arthritis, seropositive, multiple sit es 10/30/2018 Neck pain 11/29/2017 GERD without esophagitis 10/24/2016 TMJ arthralgia 02/17/2015 Resolved Problems Problem Noted Date Diagnosed Date Resolved Date Osteoarthritis 06/22/2021 05/25/2025 Encounter for other specifie d special examinations 06/21/2021 06/22/2021 High risk medication use 06/08/2021 Weight loss, unintentional 09/04/2017 0 05/25/2025 Encounters Date Type Department Care Team Description 04/14/2025 Refill [facility] Medicine Specialties [address] [place] [address] Oksana Sosa, HOME CARE AND HOME HEALTH AIDES TEACHER from Last 3 Months Immunizations Immunization Administration [...] Date Smoking Tobacco: Every Day Cigarettes 0.3 43.8 Started: 1983 Smokeless Tobacco: Never Tobacco Cessation:Ready [...] Description 07/22/2025 11:20 AM EST Office Visit [place] [facility] [address] [place] [address] Oksana Sosa, HOME CARE AND HOME HEALTH AIDES TEACHER [address] [place] [address] Health Maintenance Due Date Last Done Comments [facility]-Medicare Annual Wellness (AWV) 1965 [facility]-/Child/Adol SDOH Screenings 1965 [facility]- SDOH Screenings 1981 [facility]-Adult SDOH Screenings 1981 [facility]-Zoster Vaccines (1 of 2) 1982 [facility]-Pap Smear 02/12/2006 02/12/2003, 03/2002, 02/21/2001, Additional history exists [facility]-Cervical Cancer Screening 02/13/2008 [facility]-HPV/Cotest 02/13/2008 02/12/2003, 03/2002, 02/21/2001, Additional history exists CT Colonography 2008 Colonoscopy 2008 FIT-DNA 2008 FIT 2008 FOBT 2008 Sigmoidoscopy 2008 [facility]-Colorectal Cancer Screening 2008 [facility]-Breast Cancer Screening 2013 [facility]-Pneumococcal Vaccine: 50+ Years (2 of 2 - PPSV23, PCV20, or PCV21) 03/23/2016 01/27/2016 [facility]-RSV Vaccine: 60+ Years or (1 - Risk 60-74 years 1-dose series) 2023 [facility]-Depression Screening 04/01/2025 04/01/2024, 11/0 01/2021 [id number] Vaccine ( - season) 2025 05/20/2021, 12/24/2020, 11/26/2020 [facility]-Influenza Vaccine (#1) 2025 [facility]-DTaP,Tdap,and Td Vaccines [...] 3:13 PM EDT 02/17/2015 3:52 PM EDT [employer] LAB BLOOD ORDERABLES Final Res ult SUNQUEST * Acute Hepatitis Panel (02/17/2015 3:13 PM EDT) Hepatitis B Surf Antigen NEGATIVE Reference Value: Negative SUNQUEST Hepatitis C Antibody NEGATIVE Reference Range: Negative SUNQUEST Hepatitis A Antibody IgM NEGATIVE Reference Value: Negative SUNQUEST External Hepatitis B Core IgM (HBCM) NEGATIVE Reference Value: Negative SUNQUEST 02/17/2015 3:13 PM EDT 02/17/2015 3:52 PM EDT [employer] HOME CARE AND HOME HEALTH AIDES TEACHER LAB BLOOD ORDERABLES Final Res ult Performing Organization Address City/[facility] Co de Phone Number SUNQUEST * Cytology (02/12/2003 12:00 AM EDT) 02/12/2003 02/14/2003 12: 21 PM EDT Narrative SUNQUEST - 02/17/2003 4:16 PM EDT [facility] MR #: [id number] [facility] [address] [place], [place] [address] 1965 (Age: 37) FW Collect Date: 02/12/2003 00:00 Receipt Date: 02/14/2003 12:21 Page 1 DEPARTMENT OF PATHOLOGY AND LABORATORY MEDICINE CYTOPATHOLOGY REPORT Email: [email or web address] [phone] ATTENDING MD/Practitioner: Tania Hogan MD Service: PAT [...] results is suggested (please call Microbiology at [phone] for results). CLINICAL INFORMATION: Menstrual History: Cyclic Date of Last Menstrual Period: 02/04 Other Clinical Conditions: Tobacco user SPECIMEN DESCRIPTION: A: THIN PREP (CERVICAL/VAGINAL) THIN PREP PROCESS CELLULAR ENHANCEMENT ICD: V76.2 CERVIX, SPECIAL SCREENING FOR MALIGNANT NEOPLASM F: A; THIN SCRN 45238 SNOMED CODES: A; [id number] In cases where a pathologist has signed out the report, the service has been rendered in part by a resident. The signing pathologist has performed and is responsible for the reported pathologic evaluation. us Historical Provider LAB PATHOLOGY ORDERABLES Fin al Result SUNQUEST from Last 3 Months or Most Recently Relevant to Health Maintenance Insurance [facility] MEDICARE Advance Directives * Full Code (Latest Code Status on File) Date Activated Date Inactivated Comments 06/21/2021 11:43 PM 06/22/2021 6:47 PM Question Answer Comments Patient has decision-making capacity? Yes Care Teams Rock Wool Applicator Relationship Specialty Start Date End Date Akbar Torres APRN [address] [place] [address] PCP - General 04/01/24 Artem rAmenta MD [address] [address] Consulting Physician Neurology 07/09/21 Rakesh Woodall MD [address] [address] Consulting Physician 09/22/21
--- OUTSIDE RECORDS SUMMARY | 2025-06-19 14:03 | XMS_ITS | Encounter Summary ---
Author Organization Healthcare Address [address] [place] [address] Care Team Providers Care Private Branch Exchange Operator Name Role Phone Em Renteria APRN Primary Care Provider [phone] Artem Armenta MD Unavailable [phone] Rakesh Woodall MD Unavailable Akbar Torres APRN Primary Care Provider [phone] Reason for Visit * Reason Comments Med Refill Encounter Details Date Type Department Care Team (Late st Contact Info) Description 05/23/2022 Refill [place] [facility] Medicine Specialties [address] [place] [address] Brittani Ortiz APRN [address] [address] Social History Tobacco Use Types [...] Description 07/22/2025 11:20 AM EST Office Visit [place] [facility] [address] [place] [address] Oksana Sosa APRN [address] [place] [address] documented as of this encounter Visit Diagnoses Not on filedocumented in this encounter Additional Health Concerns Assessment Noted Time A fall risk assessment has been complete d for the patient 10/12/2021 3:07 PM EST documented as of this encounter Care Teams Private Branch Exchange Operator Relationship Specialty Start Date End Date Em Renteria APRN [address] [place] [address] PCP - General 07/09/21 03/31/24 Akbar Torres, HEAD OF SCIENCE [address] [place] [address] PCP - General 04/01/24 Artem Armenta MD [address] [place] [address] Consulting Physician Neurology 07/09/21 Rakesh Woodall MD [address] [place] [address] Consulting Physician 09/22/21 documented as of this encounter
--- OUTSIDE RECORDS SUMMARY | 2025-06-19 14:04 | XMS_ITS | Patient Health Record ---
Author Organization [facility] Address [address] [id number] Care Team Providers Care Spiritual Care Coordinator Name Role Phone Anupama Navarro Primary Care Provider [phone] Char Morgan Unavailable [phone] Allergies Allergen (clinical drug ingredient) Drug/Non Drug Allergy documented on EMR Reaction Allergy Type Onset Date Status Maxzide vomiting Drug Allergy Active codeine Codeine Unknown Drug Allergy Active Medications Medication SIG (Take, Route, Frequency, Duration) Notes Start Date End Date Status TOLMETIN 400 MG 1 TAB(S) ORALLY 3 TIMES A DAY *Please review for potential replacement for e-prescription and drug interaction check* 01/02/2012 Active Amitriptyline HCl 25 MG 1 tab(s) orally once a day (at bedtime) 04/22/2013 Active Citalopram Hydrobromide 40 MG 1 tab(s) orally once a day orally once a day 03/12/2013 Active Loratadine 10 MG 1 tab(s) orally once a day in the am; Duration: 30 day(s) Active Gabapentin 300 MG 2 cap(s) orally 3 times a day 02/25/2013 Active Folic Acid 1 MG 1 tab(s) orally once a day Active Lisinopril 20 MG 1 tab(s) orally once a day; Duration: 30 day(s) 06/24/2013 Active Methotrexate 2.5 MG 6 tabs orally once a week; Duration: 30 day(s) Active Immunizations Vaccine Route Administration Date Status Comme nts ppd ID Intradermal 03/17/2012 Administered Problems Problem Type SNOMED Code ICD Code Onset Dates Problem Status W/U Status Risk Notes Problem Hypertension (49098218) Hypertension (401.9) Active confirmed Problem Radiculopathy (92411104) Radiculopathy (729.2) Active confirmed Problem Tobacco use (186193904) Tobacco use disorder (305.1) Active confirmed Problem Carpal tunnel syndrome (83351497) Carpal tunnel syndrome (354.0) Active confirmed Problem Degeneration of cervical intervertebral disc (20582936) CERVICAL DISC DEGEN (722.4) Active confirmed Problem Rheumatoid arthritis (89853699) Rheumatoid arthritis (714.0) Active confirmed Problem Mixed anxiety and depressive disorder (668352025) Depression with anxiety (300.4) Active confirmed Plan Of Treatment No Information Medications Administered Medication Instructions Date of Administration Dosage Notes depo medrol 80 mg 01/17/2012 Depo- Medrol 40 mg/ml 08/07/2012 Medical (General) History Medical History History ICD Code Migraine headaches tobacco abuse Rheumatoid arthritis Surgical History Surgery Date(Month/Year) tubal ligation 1988 D & C endrometrial ablation
== END 2025-06-18 23:59 | disposition home or self-care (01) ==
LOC: LAB.DROPOF 06-19 13:58
PROVIDERS: PCP Student in an Organized Health Care Education/Training Program; Visit Provider Student in an Organized Health Care Education/Training Program
DX: E78.5 Hyperlipidemia, unspecified (principal); I10 Essential (primary) hypertension; Z79.899 Other long term (current) drug therapy; Z86.73 Personal history of transient ischemic attack (TIA), and cerebral infarction without residual deficits
CPT/HCPCS: 80053; 80061; 85025; 87389; 87522